=== PATIENT | male | born 2000 | race Caucasian/White ===

== ENCOUNTER 2023-09-23 23:23 | Emergency (ER) | payer BC, SELFPAY ==
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
[2023-09-23 23:29] VITALS: BP 129/90; PULSE 98; RESP 20; TEMP 37.3; O2SAT 100
[2023-09-23] MEDS: TETANUS,DIPHTHERIA,AC PERTUSSIS ADULT (0.5 ML) BOOSTRIX IM (23:46)
[2023-09-23 23:51] LABS: Basophils Percent Auto 0.5 % (0.2-1.2); Eosinophils Percent Auto 0.6 % (0-4.4); Hematocrit 47.7 % (42.0-52.0); Hemoglobin 15.6 g/dL (14.0-18.0); Immature Granulocyte Absolute 0.01 K/mm3 (0.00-0.031); Immature Granulocyte Percent A 0.2 % (0-0.5); Lymphocytes Absolute Auto 1.77 K/mm3 (0.9-3.2); Lymphocytes Percent Auto 27.4 % (18.3-44.2); Mean Corpuscular HGB Conc 32.7 g/dl (32-36); Mean Corpuscular Hemoglobin 29.9 pg (26-34); Mean Corpuscular Volume 91.4 fl (80-100); Mean Platelet Volume 10.3 fl (7.4-10.4); Monocytes Absolute Auto 0.4 K/mm3 (0.1-0.6); Monocytes Percent Auto 6.5 % (2.6-8.5); Neutrophils Absolute Auto 4.2 K/mm3 (1.3-6.7); Neutrophils Percent Auto 64.8 % (45.5-73.1); Platelet Count Result 259 k/mm3 (150-375); Red Blood Count 5.22 M/mm3 (4.6-6.20); Red Cell Distribution Width 13.1 % (11.5-14.5); White Blood Count 6.5 K/mm3 (4.5-10.0)
[2023-09-24] VITALS (10 sets, daily range): BP systolic 104–109; BP diastolic 78; PULSE 69–91; RESP 12–22; O2SAT 98–100
[2023-09-24 00:02] LABS: Alanine Aminotransferase 18 U/L (6-50); Alkaline Phosphatase 55 U/L (38-126); Anion Gap 10 mmol/L (8-16); Aspartate Amino Transferase 31 U/L (17-59); Bilirubin,Total 0.5 mg/dL (0.2-1.3); Blood Urea Nitrogen 12 mg/dL (9-20); Calcium 9.7 mg/dL (8.4-10.2); Carbon Dioxide 28 mmol/L (22-30); Chloride 111 mmol/L (98-107); Estimated CRCL calculation 105 ml/min; Estimated Glomerular Filt Rate > 60; Ethanol 235 mg/dL (<10); Glucose 97 mg/dL (65-110); Potassium 3.7 mmol/L (3.4-5.0); Sodium 149 mmol/L (137-145)
--- NOTE | 2023-09-24 00:04 | PC.NURSE ---
Patient taken to ct at this time.
[2023-09-24 00:27] LABS: Appearance Urine Clear (Clear); Bilirubin Urine Negative (Negative); Blood Urine Negative (Negative); Color Urine Yellow (Yellow); Glucose Urine UA Negative (Negative); Ketones Urine Negative (Negative); Leukocyte Esterase Ur Negative LEU/UL (Negative); Nitrate Urine Negative (Negative); Protein Urine Negative (Negative); Specific Grav Ur 1.008 (1.001-1.035); Urobilinogen Urine 0.2 mg/dL (<2.0)
[2023-09-24 00:50] LABS: Add Urine Microscopic? NO
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
== END 2023-09-24 02:39 | disposition home or self-care (01) ==
PROVIDERS: Emergency Provider Emergency Medicine
DX: S01.311A Laceration without foreign body of right ear, initial encounter (principal); S00.01XA Abrasion of scalp, initial encounter; F10.129 Alcohol abuse with intoxication, unspecified; Y90.7 Blood alcohol level of 200-239 mg/100 ml; Z23 Encounter for immunization; V86.55XA Driver of 3- or 4- wheeled all-terrain vehicle (ATV) injured in nontraffic accident, initial encounter
CPT/HCPCS: 12011; 36415; 70450; 71260; 72125; 74177; 80053; 80307; 81003; 85025; 90471; 90715; 99284; L0140; Q9967

== ENCOUNTER 2024-08-30 17:47 | Emergency (ER) | payer BC, SELFPAY ==
--- NOTE | 2024-08-30 17:56 | ED_ITS ---
HPI - Male Genitourinary General Chief complaint: Urogenital-Male Stated complaint: STD Time Seen by Provider: 08/30/24 18:05 Source: patient Mode of arrival: ambulatory Limitations: no limitations History of Present Illness HPI Narrative: Billy is a 24-year-old male patient presenting to the clinic today with complaints of possible STI. He reports that symptoms started approximately 1 week ago. He is having clear discharge coming from his penis. He denies any urinary symptoms, testicle pain, fever, back pain, or abdominal pain. Last sexual intercourse was last night. He states he has been with the same partner. Related Data Allergies Allergy/AdvReac Type Severity Reaction Status Date / Time cefdinir Allergy Intermediate Hives / Verified 08/30/24 17:51 Red Face Review of Systems Review of Systems: Pertinent positives per HPI. Patient denies any fever, chills, rash, headache, visual changes, dizziness, cough, runny nose, sore throat, shortness of breath, chest pain, palpitations, nausea, vomiting, diarrhea, constipation, abdominal pain, or any urinary issues. PMFSH Comments At the time of my signature, I reviewed and agree with the nursing past medical, surgical, social, and family history. There is no relevant family history pertinent to the patient complaint. Exam Narrative: General: Well-developed, well nourished, in no apparent distress. Head: Normocephalic, atraumatic. Cardio: Regular rate and rhythm, s1 and s2 normal, no murmur appreciated. Resp: Clear to auscultation bilaterally, no rhonchi, rales, wheezing or rubs. Abdomen: Soft, pliable, bowel sounds present in all quadrants, non-tender to palpation, no organomegly, no CVAT tenderness. : Deferred Course Course Emergency Course: Portions of this record may have been created with voice recognition software. Level of Care: Express Care Visit Vital Signs Vital signs: Vital Signs Temperature 37.1 C 08/30/24 18:08 Pulse Rate 86 08/30/24 18:08 Respiratory Rate 15 08/30/24 18:08 Blood Pressure 140/62 08/30/24 18:08 Pulse Oximetry 100 08/30/24 18:08 Oxygen Delivery Room Air 08/30/24 18:08 Temperature 37.1 C 08/30/24 18:08 Pulse Rate 86 08/30/24 18:08 Respiratory Rate 15 08/30/24 18:08 Blood Pressure 140/62 08/30/24 18:08 Pulse Oximetry 100 08/30/24 18:08 Oxygen Delivery Room Air 08/30/24 18:08 Vital signs reviewed MDM - Male Genitourinary MDM Narrative Medical decision making narrative: At the time of visit patient is resting comfortably on the exam table. Patient appears to be nontoxic. Plan: Patient is reporting some clear penile discharge. Will send dirty urine for chlamydia, gonorrhea, and Trichomonas testing. Urinalysis is negative for any sign of infection. Patient has allergy to cefdinir so we will not give him ceftriaxone in the clinic to cover for gonorrhea. Explained to the patient if gonorrhea testing comes back positive he will have to go the emergency room for a gentamicin injection. He voiced understanding. Will place the patient on doxycycline for the time being while awaiting these test results. Supportive measures were discussed with the patient and they voiced understanding discharge instructions and agrees to treatment plan. Return precautions reviewed Differential Diagnosis Differential diagnosis: Likely urinary tract infection, urethritis, epididymitis and other (Sexually transmitted infection such as chlamydia, gonorrhea, Trichomonas) Discharge Plan Discharge Clinical Impression: Penile discharge, without blood, Concern about STI in male without diagnosis Patient Disposition: Home, Self-Care Condition: Stable Instructions: Antibiotic Form, Sexually Transmitted Diseases (ED), Safe Sex Practices (ED) Additional Instructions: Urinalysis is negative for any sign of infection. We will send a urine for testing for STIs. We will send for chlamydia, gonorrhea, and Trichomonas testing You have allergy to cefdinir so we cannot give you ceftriaxone in the clinic today. Your gonorrhea test comes back positive you will have to go to the emergency room for a gentamicin antibiotic injection Take doxycycline as prescribed-this will cover chlamydia. We have tested/treated you for STIs in the clinic today. Avoid any sexual activity- includes oral, anal, or vaginal intercourse until you get results back and have completed any additional recommended treatment regimens. We will contact you if testing is positive and make sure your treatment was appropriate for the type of STI. If symptoms worsen after treatment recommend reevaluation with your PCP or Express care. Patient Language: [place] Prescriptions: New doxycycline monohydrate 100 mg capsule 100 mg PO BID 7 Days Qty: 14 0RF Follow-up/Referrals: PHYSICIAN,HOSPITAL SUPERINTENDENT [Primary Care Provider] - Time of Disposition: 18:09 Quality NIHSS Nursing Documentation ED NIHSS nursing documentation: reviewed/agree
[2024-08-30 18:08] VITALS: BP 140/62; PULSE 86; RESP 15; TEMP 37.1; O2SAT 100
[2024-08-30 18:54] LABS: EDUAAPPEAR Clear; EDUABILI Negative (Negative); EDUABLOOD Negative (Negative); EDUACOLOR1 Yellow; EDUAGLUCOSE Negative (Negative); EDUAKETONE Negative (Negative); EDUALEUKO Negative (Negative); EDUANITRATE Negative (Negative); EDUAPH 6.5; EDUAPROTEIN Negative (Negative); EDUASPGRAVITY 1.015; EDUAUROBILI 0.2
[2024-08-30 20:35] LABS: Trichomonas Vag PCR NOT DETECTED (NOT DETECTE)
[2024-08-30 21:00] LABS: Chlamydia trachomatis DETECTED (NOT DETECTE); Neisseria gonorrhoeae PCR NOT DETECTED (NOT DETECTE)
== END 2024-08-30 18:15 | disposition home or self-care (01) ==
PROVIDERS: Emergency Provider Nurse Practitioner Family
DX: R36.9 Urethral discharge, unspecified (principal); Z11.3 Encounter for screening for infections with a predominantly sexual mode of transmission
CPT/HCPCS: 81003; 87491; 87591; 87661; 99213; G0463

== ENCOUNTER 2024-10-29 18:34 | Emergency (ER) | payer BC, SELFPAY ==
--- NOTE | 2024-10-29 18:36 | ED_ITS ---
HPI - Male Genitourinary General Chief complaint: Urogenital-Male Stated complaint: STD Time Seen by Provider: 10/29/24 18:34 Source: patient Mode of arrival: ambulatory Limitations: no limitations History of Present Illness HPI Narrative: Rosalind is a 24-year-old male patient presenting to the clinic today with complaints of a possible STI. He reports he is having penile itching and discharge. This started 3 days ago. Had intercourse earlier this week prior to his symptoms. Tested positive for chlamydia back in August and he was with the same sexual partner. He is unaware if she has been tested/treated. He denies any fevers, chills, body aches, urinary symptoms, or back pain. Related Data Allergies Allergy/AdvReac Type Severity Reaction Status Date / Time cefdinir Allergy Intermediate Hives / Verified 10/29/24 18:43 Red Face Review of Systems Review of Systems: Pertinent positives per HPI. Patient denies any fever, chills, rash, headache, visual changes, dizziness, cough, runny nose, sore throat, shortness of breath, chest pain, palpitations, nausea, vomiting, diarrhea, constipation, abdominal pain, or any urinary issues. PMFSH Comments At the time of my signature, I reviewed and agree with the nursing past medical, surgical, social, and family history. There is no relevant family history pertinent to the patient complaint. Exam Narrative: General: Well-developed, well nourished, in no apparent distress. Head: Normocephalic, atraumatic. Cardio: Regular rate and rhythm, s1 and s2 normal, no murmur appreciated. Resp: Clear to auscultation bilaterally, no rhonchi, rales, wheezing or rubs. Abdomen: Soft, pliable, bowel sounds present in all quadrants, non-tender to palpation, no organomegly, no CVAT tenderness. : Deferred Course Course Emergency Course: Portions of this record may have been created with voice recognition software. Level of Care: Express Care Visit Vital Signs Vital signs: Vital Signs Temperature 37.6 C 10/29/24 18:38 Pulse Rate 88 10/29/24 18:38 Respiratory Rate 16 10/29/24 18:38 Blood Pressure 119/82 10/29/24 18:38 Pulse Oximetry 100 10/29/24 18:38 Oxygen Delivery Room Air 10/29/24 18:38 Temperature 37.6 C 10/29/24 18:38 Pulse Rate 88 10/29/24 18:38 Respiratory Rate 16 10/29/24 18:38 Blood Pressure 119/82 10/29/24 18:38 Pulse Oximetry 100 10/29/24 18:38 Oxygen Delivery Room Air 10/29/24 18:38 Vital signs reviewed MDM - Male Genitourinary MDM Narrative Medical decision making narrative: At the time of visit patient is resting comfortably on the exam table. Patient appears to be nontoxic. Labs: Testing for chlamydia, gonorrhea, and Trichomonas was sent to the lab. Plan: Will treat patient for chlamydia as he has been positive for this in the past and is unaware if his partner was tested/treated. Supportive measures were discussed with the patient and they voiced understanding discharge instructions and agrees to treatment plan. Return precautions reviewed Differential Diagnosis Differential diagnosis: Likely urinary tract infection, priapism, urethritis, epididymitis, genital herpes simplex, prostatitis, acute retention of urine and inguinal hernia Discharge Plan Discharge Clinical Impression: Penile discharge Patient Disposition: Home Condition: Stable Instructions: Antibiotic Form, Sexually Transmitted Diseases (ED), Safe Sex Practices (ED) Additional Instructions: We have tested/treated you for STIs in the clinic today. Avoid any sexual activity- includes oral, anal, or vaginal intercourse until you get results back and have completed any additional recommended treatment regimens. We will contact you if testing is positive and make sure your treatment was appropriate for the type of STI. If symptoms worsen after treatment recommend reevaluation with your PCP or Express care. Patient Language: Setswana Prescriptions: New doxycycline monohydrate 100 mg capsule 100 mg PO BID 7 Days Qty: 14 0RF No Action doxycycline monohydrate 100 mg capsule 100 mg PO BID 7 Days Qty: 14 0RF Follow-up/Referrals: PHYSICIAN,TOPOGRAPHICAL SURVEYOR [Primary Care Provider] - Time of Disposition: 18:46 Quality NIHSS Nursing Documentation ED NIHSS nursing documentation: reviewed/agree
[2024-10-29 18:38] VITALS: BP 119/82; PULSE 88; RESP 16; TEMP 37.6; O2SAT 100
[2024-10-30 19:24] LABS: Trichomonas Vag PCR NOT DETECTED (NOT DETECTE)
[2024-10-30 19:48] LABS: Chlamydia trachomatis NOT DETECTED (NOT DETECTE); Neisseria gonorrhoeae PCR NOT DETECTED (NOT DETECTE)
== END 2024-10-29 18:49 | disposition home or self-care (01) ==
PROVIDERS: Emergency Provider Nurse Practitioner Family
DX: R36.9 Urethral discharge, unspecified (principal)
CPT/HCPCS: 87491; 87591; 87661; 99213; G0463

== ENCOUNTER 2025-07-23 18:20 | Emergency (ER) | payer BC, SELFPAY ==
--- NOTE | 2025-07-23 18:23 | ED_ITS ---
HPI - Male Genitourinary General Chief complaint: Urogenital-Male Stated complaint: STD Time Seen by Provider: 07/23/25 18:23 Source: patient Mode of arrival: ambulatory Limitations: no limitations History of Present Illness HPI Narrative: Hero is a 25-year-old male patient presenting to the clinic today requesting STI testing. He denies any symptoms. He just likes to routinely get tested for STIs. No other concerns. Related Data Home Medications ?Medication ?Instructions ?Recorded ?Confirmed ?Last Taken ?Type No Home Medications 07/23/25 07/23/25 U nknown History Allergies Allergy/AdvReac Type Severity Reaction Status Date / Time cefdinir Allergy Intermediate Hives / Verified 07/23/25 18:48 Red Face Review of Systems Review of Systems: Pertinent positives per HPI. Patient denies any fever, chills, rash, headache, visual changes, dizziness, cough, runny nose, sore throat, shortness of breath, chest pain, palpitations, nausea, vomiting, diarrhea, constipation, abdominal pain, or any urinary issues. PMFSH Comments At the time of my signature, I reviewed and agree with the nursing past medical, surgical, social, and family history. There is no relevant family history pertinent to the patient complaint. Exam Narrative: General: Well-developed, well nourished, in no apparent distress. Head: Normocephalic, atraumatic. Cardio: Regular rate and rhythm, s1 and s2 normal, no murmur appreciated. Resp: Clear to auscultation bilaterally, no rhonchi, rales, wheezing or rubs. Abdomen: Soft, pliable, bowel sounds present in all quadrants, non-tender to palpation, no organomegly, no CVAT tenderness. deferred Course Course Level of Care: Express Care Visit Vital Signs Vital signs: Vital Signs Temperature 36.9 C 07/23/25 18:44 Pulse Rate 73 07/23/25 18:44 Respiratory Rate 20 07/23/25 18:44 Blood Pressure 127/65 07/23/25 18:44 Pulse Oximetry 99 07/23/25 18:44 Oxygen Delivery Room Air 07/23/25 18:44 Temperature 36.9 C 07/23/25 18:44 Pulse Rate 73 07/23/25 18:44 Respiratory Rate 20 07/23/25 18:44 Blood Pressure 127/65 07/23/25 18:44 Pulse Oximetry 99 07/23/25 18:44 Oxygen Delivery Room Air 07/23/25 18:44 MDM MDM Narrative Medical decision making narrative: At the time of visit patient is resting comfortably on the exam table. Patient appears to be nontoxic. Requesting STI testing. He denies any symptoms. He just routinely get tested for STIs. No other concerns.-he denies any testicle pain, penile discharge, pain with urination, difficulty urination, or blood with ejaculating. Labs: Gonorrhea, Trichomonas and chlamydia testing was sent via dirty urine to the lab Plan: Patient here for STI testing. He denies any concerns. Supportive heather ures were discussed with the patient and they voiced understanding discharge instructions and agrees to treatment plan. Return precautions reviewed Differential Diagnosis Differential Diagnosis: Differential diagnostic considerations for male genitourinary issues include urinary tract infection, priapism, epididymitis, prostatitis, acute retention of urine, inguinal hernia, STI exposure, testicular torsion, Ashutosh?s gangrene. Discharge Plan Discharge Clinical Impression: Concern about STI in male without diagnosis Patient Disposition: Home Condition: Stable Instructions: Antibiotic Form, Sexually Transmitted Diseases (ED), Safe Sex Practices (ED) Additional Instructions: We have tested you for STIs in the clinic today. Avoid any sexual activity- includes oral, anal, or vaginal intercourse until you get results back and have completed any additional recommended treatment regimens. We will contact you if testing is positive and make sure your treatment was appropriate for the type of STI. If symptoms worsen after treatment recommend reevaluation with your PCP or STI clinic Patient Language: Yi Prescriptions: No Action No Home Medications Follow-up/Referrals: PHYSICIAN NOT ON STAFF,NONSTAFF [Primary Care Provider] Time of Disposition: 18:49 Quality NIHSS Nursing Documentation ED NIHSS nursing documentation: reviewed/agree
[2025-07-23 18:44] VITALS: BP 127/65; PULSE 73; RESP 20; TEMP 36.9; O2SAT 99
[2025-07-24 19:50] LABS: Trichomonas Vag PCR NOT DETECTED (NOT DETECTE)
== END 2025-07-23 19:04 | disposition home or self-care (01) ==
PROVIDERS: Emergency Provider Nurse Practitioner Family
DX: Z11.3 Encounter for screening for infections with a predominantly sexual mode of transmission (principal)
CPT/HCPCS: 87491; 87591; 87661; 99213; G0463